=== PATIENT | female | born 1990 | race Caucasian/White ===

== ENCOUNTER 2020-03-03 17:40 | Emergency (ER) | payer SELFPAY ==
[2020-03-03 17:41] VITALS: BP 107/69; PULSE 86; RESP 16; TEMP 36.9; O2SAT 99
--- NOTE | 2020-03-03 18:01 | ED.SKABFB ---
HPI - Skin/Abscess/Foreign Bdy General Chief complaint: Skin/Abscess/Foreign Body Stated complaint: BOIL ON L LEG Time Seen by Provider: 03/03/20 18:01 Source: patient and RN notes reviewed History of Present Illness HPI narrative: Patient is a 29-year-old female that presents to the urgent care with complaints of an abscess on the leg x7 days. Patient states that she gets them often on the left leg and has had them 3 times in the past. Patient states that she has been putting Pred and warm compress to the area without much relief. Patient denies of any drainage from the area. Denies of any fever, nausea, vomiting. No other acute complaints. No acute distress noted. Patient read the plan of care. Related Data Allergies Allergy/AdvReac Type Severity Reaction Status Date / Time diazepam AdvReac Intermediate panic Verified 03/03/20 17:49 attacks meperidine AdvReac Intermediate panic Verified 03/03/20 17:49 attacks Review of Systems Review of Systems: Narrative: CONSTITUTIONAL: Denies fever, chills, or sweats. EYES: Denies visual changes, redness, or discharge. ENT: Denies rhinorrhea, congestion, sore throat, or otalgia. CARDIOVASCULAR: Denies chest pain, palpitations, or edema. RESPIRATORY: Denies cough or dyspnea. GASTROINTESTINAL: Denies abdominal pain, nausea, vomiting, or diarrhea. GENITOURINARY: Denies dysuria or hematuria. SKIN: Reports of an abscess to the inner thigh of the left leg MUSCULOSKELETAL: Denies back pain, joint pain, or myalgia. NEUROLOGIC: Denies headache, numbness, or weakness. All other systems reviewed are negative, except as documented in HPI. PMFSH Comments At the time of my signature, I reviewed and agree with the nursing past medical, surgical, social, and family history. There is no relevant family history pertinent to the patient complaint. Exam Narrative: Exam Narrative: GENERAL: This is a well-nourished, well-developed patient, in no apparent distress. HEAD: normocephalic, atraumatic. EYES: PERRL. Sclera clear/white. Vision is grossly intact. EARS: External ears normal NOSE: External nose normal with no obvious nasal discharge THROAT: Mucous membranes moist, posterior pharynx clear. NECK: Neck supple CARDIOVASCULAR: Regular rate and rhythm without murmurs, gallops, or rubs. RESPIRATORY: Clear to auscultation. Breath sounds equal bilaterally. No wheezes, rales, or rhonchi. SKIN: 5 cm area of erythema surrounding a nonfluctuant approximately 6 cm abscess to the upper inner left thigh NEURO: awake, alert, and oriented to person, place and time. There were no obvious focal neurologic abnormalities. EXTREMITIES: No clubbing, cyanosis, or edema. Course Vital Signs Vital signs: Vital Signs Temperature 98.4 F 03/03/20 17:41 Pulse Rate 86 03/03/20 17:41 Respiratory Rate 16 03/03/20 17:41 Blood Pressure 107/69 03/03/20 17:41 Pulse Oximetry 99 03/03/20 17:41 Temperature 98.4 F 03/03/20 17:41 Pulse Rate 86 03/03/20 17:41 Respiratory Rate 16 03/03/20 17:41 Blood Pressure 107/69 03/03/20 17:41 Pulse Oximetry 99 03/03/20 17:41 Reviewed MDM - Skin/Abscess/Foreign Bdy MDM Narrative Medical decision making narrative: Advised the patient not to try to pop or open the abscess. Complete oral antibiotic regimen as prescribed. Make sure to eat and drink with the medication. Increase water intake while on the medication. Use Bactroban if the area does open and drained. Clean the area twice a day or more if needed, with plain Dial soap and water. May continue to use warm compress. If the area drains, make sure to keep it covered, keep it cleaned, and use Bactroban as directed. Be aware of signs of worsening infection such as increased swelling, redness, streaking up the groin or down the leg, fever, nausea, vomiting. If you experience the above symptoms, follow-up in the emergency room. Wear nonocclusive clothing. Follow-up with PCP within 2 to 5 days or for wo
== END 2020-03-03 18:17 | disposition home or self-care (01) ==
PROVIDERS: Emergency Provider Nurse Practitioner Family
DX: L02.416 Cutaneous abscess of left lower limb (principal)
CPT/HCPCS: 99213; G0463

== ENCOUNTER 2021-10-11 07:32 | Emergency (ER) | payer OTHER, SELFPAY ==
[2021-10-11 07:39] VITALS: BP 133/82; PULSE 75; RESP 16; TEMP 36.6; O2SAT 100
--- NOTE | 2021-10-11 08:07 | ED.GENADULT ---
HPI - General Adult General Chief complaint: Headache Stated complaint: headache Time Seen by Provider: 10/11/21 07:54 Source: patient Mode of arrival: ambulatory Limitations: no limitations History of Present Illness HPI narrative: Patient presents with diffuse generalized pressure type headache associated with generalized tingling and numbness. Patient denies any stress. History of migraine and anxiety. No improvement on Tylenol or ibuprofen. The headache associated with nausea and vomiting, no fever, no chills, no abdominal pain, no chest pain, no skin rash. Headache is worse with activity, nothing make it better. Related Data Allergies Allergy/AdvReac Type Severity Reaction Status Date / Time diazepam AdvReac Intermediate panic Verified 10/11/21 07:43 attacks meperidine AdvReac Intermediate panic Verified 10/11/21 07:43 attacks Review of Systems Review of Systems: CONSTITUTIONAL: Denies fever, chills, or sweats. EYES: Denies visual changes, redness, or discharge. ENT: Denies rhinorrhea, congestion, sore throat, or otalgia. CARDIOVASCULAR: Denies chest pain, palpitations, or edema. RESPIRATORY: Denies cough or dyspnea. GASTROINTESTINAL: Denies abdominal pain, nausea, vomiting, or diarrhea. GENITOURINARY: Denies dysuria or hematuria. SKIN: Denies rash or itching. MUSCULOSKELETAL: Denies back pain, joint pain, or myalgia. NEUROLOGIC: Denies headache, numbness, or weakness. PSYCHIATRIC: Denies anxiety or depression. Exam Narrative: General appearance: Well-developed, well-nourished, restless Skin: Normal color Head: Normocephalic, nontraumatic Eyes: Clear conjunctiva ENT: Oropharynx normal, ears normal, nose normal Neck: Supple, nontender Chest and respiratory: Airway patent, no respiratory distress, no accessory muscle use Heart: Regular rate/rhythm Abdomen: Soft, nontender, no organomegaly, quiet bowel sounds Vascular: Normal peripheral pulses, normal capillary refill. Musculoskeletal: Normal range of motion, nontender back Neurologic: Alert and oriented ?3, [employer] is normal as tested, no gross motor deficit Course Course Emergency Course: Improving Vital Signs Vital signs: Vital Signs Temperature 36.6 C 10/11/21 07:39 Pulse Rate 75 10/11/21 07:39 Respiratory Rate 16 10/11/21 07:39 Blood Pressure 133/82 10/11/21 07:39 Pulse Oximetry 100 10/11/21 07:39 Temperature 36.6 C 10/11/21 07:39 Pulse Rate 75 10/11/21 07:39 Respiratory Rate 16 10/11/21 07:39 Blood Pressure 133/82 10/11/21 07:39 Pulse Oximetry 100 10/11/21 07:39 Medical Decision Making MDM Narrative Medical decision making narrative: Anxiety inducing headache/tension headache is my concern Differential Diagnosis Differential Diagnosis: Headache of unknown etiology, tension headache, anxiety-like symptoms Vital Signs Vital Signs: Vital Signs Temperature 36.6 C 10/11/21 07:39 Pulse Rate 75 10/11/21 07:39 Respiratory Rate 16 10/11/21 07:39 Blood Pressure 133/82 10/11/21 07:39 Pulse Oximetry 100 10/11/21 07:39 Temperature 36.6 C 10/11/21 07:39 Pulse Rate 75 10/11/21 07:39 Respiratory Rate 16 10/11/21 07:39 Blood Pressure 133/82 10/11/21 07:39 Pulse Oximetry 100 10/11/21 07:39 Critical Care Time Critical Care Time Critical Care Time: Yes Total Critical Care Time: 30 Discharge Plan Discharge Clinical Impression: Headache Patient Disposition: Home, Self-Care Condition: Stable Instructions: Antibiotic Form, Acute Headache (ED) Additional Instructions: Return if symptoms are worsening , call your family physician for appointment, take Tylenol as as needed for aches and pain, co
[2021-10-11] MEDS: SODIUM CHLORIDE 0.9% IV 1,000 ML 999 ML IV CONT (08:22)
[2021-10-11] MEDS: diphenhydrAMINE HCl INJ 50 MG/ML VIAL 25 MG IV PUSH (08:23)
[2021-10-11] MEDS: METOCLOPRAMIDE HCL INJ 10 MG/2 ML VIAL IV PUSH (08:23)
[2021-10-11] MEDS: KETOROLAC 30 MG/ML VIAL (*BKC) IV PUSH (08:23)
[2021-10-11] MEDS: LORazepam INJ (*CRX) 2 MG/ML VIAL 1 MG IV PUSH (08:23)
== END 2021-10-11 10:25 | disposition home or self-care (01) ==
PROVIDERS: Emergency Provider Emergency Medicine
DX: R51.9 Headache, unspecified (principal)
CPT/HCPCS: 96361; 96374; 96375; 99284; J1200; J1885; J2060; J2765; J7030

== ENCOUNTER 2022-03-05 14:25 | Outpatient (CLI) | payer OTHER, SELFPAY ==
--- NOTE | ~2022-03-05 | XR_ITS ---
EXAMINATION: XR hip RT min 2V DATE: 03/05/2022 14:42 INDICATION: Right hip pain. TECHNIQUE: 2 views of right hip were obtained. COMPARISON: None. FINDINGS: Bone alignment is normal. No fracture. There is a dysplastic bump at the anterolateral junc tion of right femoral head and neck, which may be seen with femoral acetabular impingement. An os mick tabuli is noted. Right hip joint space is normal. IMPRESSION: 1. No arthritis. Reviewed, dictated and finalized at location A. IMPRESSION: 1. No arthritis.
== END 2022-03-05 14:26 | disposition home or self-care (01) ==
PROVIDERS: PCP Physician Assistant; Visit Provider Physician Assistant
DX: M25.551 Pain in right hip (principal)
CPT/HCPCS: 73502

== ENCOUNTER 2022-03-12 14:24 | Outpatient (CLI) | payer OTHER, SELFPAY ==
--- NOTE | ~2022-03-12 | XR_ITS ---
EXAM: XR hip LT min 3V w AP pelvis HISTORY: CERVICALGIA;PAIN IN LEFT HIP COMPARISON: None available FINDINGS: Normal mineralization. No fracture or dislocation. No lytic or blastic lesion. Joint space s maintained. No erosion or periosteal change. Soft tissues within normal limits. IMPRESSION: Normal left hip radiograph findings. Reviewed, dictated and finalized at location K.
--- NOTE | ~2022-03-12 | XR_ITS ---
EXAM: XR cervical spine 4-5V HISTORY: CERVICALGIA;PAIN IN LEFT HIP, NO INJURY COMPARISON: None available FINDINGS: Craniocervical association and atlantoaxial joint are normal. No prevertebral soft tissue swelling. The vertebral body heights and are maintained. 2 mm anterolisthesis of C4 on C5 and C5 on 6 . Mild disc space narrowing at C5-6. Normal facets and posterior elements. IMPRESSION: Grade 1 anterolisthesis at C4 on C5 and C5 on 6. Mild degenerative disc disease at C5-6. Reviewed, dictated and finalized at location K.
== END 2022-03-12 14:25 | disposition home or self-care (01) ==
LOC: ANHIMG 14:29
PROVIDERS: PCP Physician Assistant; Visit Provider Physician Assistant
DX: M47.812 Spondylosis without myelopathy or radiculopathy, cervical region (principal); M25.552 Pain in left hip
CPT/HCPCS: 72050; 73502

== ENCOUNTER 2022-04-15 16:00 | Outpatient (RCR) | payer OTHER, SELFPAY ==
--- NOTE | 2022-04-05 13:35 | PTOPEVAL ---
PHYSICAL THERAPY INITIAL EVALUATION. Thank you for referring Christine Saha to [facility] The patient is scheduled to be seen for therapy? 1x/week for 6 weeks. Please review, sign, date and return this plan of care HE. I agree with and certify that the following plan of care is medically necessary. Referring Physician Date Attending Provider: Gill Miranda, PA Evaluation Information Diagnosis Bilateral hip pain Onset ~1 year Subjective Information Pt states she suffers from Query Text:As Reported By Patient/ chronic hip pain and also Family chronic headaches. Shes states she has pain in both hips L > R. She states the pain radiates down into her knees. Pt states she worst pain in laying on her side with pressure on her hip. She reports she is consulting with an orthopedic on 04/15/22. Pain Assessment Self Report Pain Assessment Bilateral Hip(s) Reported Pain Level 0 Pain Description Aching,Radiating,With Movement Pain Radiation Left Leg,Right Leg Lowest Pain Intensity 0 Greatest Pain Intensity 8 Lower Extremity Range of Motion General Lower Extremity Range of Motion WFL/Left,WFL/Right Hip Range of Motion Left Hip Flexion Range of Motion - Active 100 Hip Extension Range of Motion - Active 10 Hip Medial Rotation - Passive 10 Hip Lateral Rotation - Passive 75 Hip Range of Motion Comments R hip flexion 120 R hip ER 80 with hip at 90-90 R hip IE 30 with hip in 90-90 Lower Extremity Muscle Strength Testing Gross Lower Extremity Strength Pain reports with all resisted movements on the L LE. B LE grossly 5/5 except: L hip flexion 4/5 Muscle Length Testing Right Prone Hip Internal Rotator Length 45 Left Prone Hip Internal Rotator Length ( 45 Left Hamstring Length -45 Right Hamstring Length -10 Posture Posture Evaluation View Posterior Head/C-Spine Posture Excess Extension,C-Spine Flattened Thoracic Spine Posture Flattened Lumbar Spine Posture Increased Lordosis Pelvis Posture Neutral Weight Distribution Balanced Hip Posture (L) Neutral,(R) Neutral Knee Posture (L) Genu Valgus,(R) Genu Valgus Palpation Assessment Palpation anterior hip crease Hip Special Tests Hip Scou
--- NOTE | 2022-04-22 14:13 | PCPTNOTE ---
Patient called & cancelled scheduled appointment this date, she did not give a reason why.
--- NOTE | 2022-04-30 15:20 | PCPTNOTE ---
Patient did not show up for scheduled appointment this date. Called and left voicemail.
--- NOTE | 2022-05-06 16:24 | PCPTNOTE ---
Patient did not show up for scheduled appointment this date; called patient who answered the phone stating Friday's don't work for her due to medical doctors for her child stated she has her follow-up with ortho MD on 05/14/22; after discussion will place patient on hold till further information is given from MRI results and MD visit. PT aware and in agreement.
--- NOTE | 2022-05-20 12:45 | PCPTNOTE ---
Attending Provider: Gill MirandaMAXX Patient:Christine Saha Date of :1990 Patient called and states her doctor would like her to try hip injections, she would like to be discharged from therapy at this time to try the injections first. Patient?s initial visit was on 04/05/2022 and she had a total of 2 visits. Thank you for referring this patient to [facility]. Please review, sign, date and return this discharge summary HE. I have been updated about the patient's current status and I agree with discharge from the above service at this time. Referring Physician Date
== END 2022-05-21 10:16 | disposition home or self-care (01) ==
LOC: ANHPT 16:00
PROVIDERS: PCP Physician Assistant; Referring Provider Physician Assistant; Visit Provider Physician Assistant
DX: M43.10 Spondylolisthesis, site unspecified (principal)
CPT/HCPCS: 97110; 97112; 97161; 97530

== ENCOUNTER 2022-05-04 12:29 | Outpatient (CLI) | payer OTHER, SELFPAY ==
--- NOTE | ~2022-05-04 | MR_ITS ---
EXAMINATION: MR hip LT wo con DATE: 05/04/2022 13:38 INDICATION: Bilateral hip joint pain. TECHNIQUE: Magnetic resonance imaging (MRI) of the left hip was performed without intravenous contras t. COMPARISON: Left hip radiographs 03/12/2022 FINDINGS: Bones/cartilage: Bone alignment is normal. No fracture. There are dysplastic bumps on the femoral head/neck junctions anterolaterally. The hip joints demonstrate tiny osteophytes. Small [id number] images of left hip demonstrate partial thickness cartilage loss posteriorly. Labrum: Left acetabular labrum is normal. Fluid: There is no hip joint effusion. There is mild bilateral trochanteric bursitis. Soft tissues: There is mild right gluteus minimus and gluteus medius tendinopathy. There is mild left gluteus mediu s tendinopathy. The hamstring tendon origins are normal. The iliopsoas tendons are normal. The muscul ature is normal. IMPRESSION: 1. Mild left hip chondrosis. 2. Dysplastic bumps at the femoral head/neck junctions anterolaterally, which may be seen with femora l acetabular impingement. 3. Mild tendinopathy of right gluteus minimus and medius tendons and left gluteus medius tendon. 4. Mild bilateral trochanteric bursitis. Reviewed, dictated and finalized at location A. IMPRESSION: 1. Mild left hip chondrosis. 2. Dysplastic bumps at the femoral head/neck junctions anterolaterally, which m ay be seen with femoral acetabular impingement. 3. Mild tendinopathy of right gluteus minimus and medius tendons and left glute us medius tendon. 4. Mild bilateral trochanteric bursitis.
== END 2022-05-04 12:30 | disposition home or self-care (01) ==
PROVIDERS: PCP Physician Assistant; Visit Provider Physician Assistant Surgical
DX: M71.552 Other bursitis, not elsewhere classified, left hip (principal); M71.551 Other bursitis, not elsewhere classified, right hip
CPT/HCPCS: 73721

== ENCOUNTER 2022-05-24 10:54 | Outpatient (CLI) | payer OTHER, SELFPAY ==
--- NOTE | ~2022-05-24 | XR_ITS ---
EXAMINATION: XR lg joint inject/asp w image DATE: 05/24/2022 11:39 INDICATION: Other specified joint disorders. TECHNIQUE: A time-out was performed to verify the patient's name, date of , and procedure to b e performed. The procedure including the risks, benefits, and alternatives was discussed with the pat ient. Risks discussed included bleeding and infection. The patient understood the risks and agreed to proceed. The skin overlying the left hip joint was prepped and draped in usual sterile fashion. An esthetic was administered with 1% lidocaine subcutaneously. A 22 G needle was advanced under fluoros copic guidance into the joint. Subsequently, injectate consisting of 4 mL 1% lidocaine and 1 mL 80 m g/mL Depo-Medrol was instilled. The needle was removed and the entry site was cleaned and dressed. There were no immediate complications. Fluoroscopy exposure time was 0.0 minutes. The total number of images was 1. FINDINGS: Real-time fluoroscopy demonstrates the needle in the left hip joint. Patient's pain prior t o procedure:04/09. Patient's pain following the procedure: 02/07. IMPRESSION: 1. Fluoroscopy guided left hip joint injection of local anesthetic and steroid with decrease in the p atient's presenting pain. Reviewed, dictated and finalized at location A. IMPRESSION: 1. Fluoroscopy guided left hip joint injection of local anesthetic and steroid with decrease in the patient's presenting pain.
== END 2022-05-24 10:55 | disposition home or self-care (01) ==
LOC: ANHIMG 11:01
PROVIDERS: PCP Physician Assistant; Visit Provider Orthopaedic Surgery
DX: M25.852 Other specified joint disorders, left hip (principal)
CPT/HCPCS: 20610; 77002; J1040

== ENCOUNTER 2023-07-15 13:24 | Outpatient (CLI) | payer OTHER, SELFPAY ==
--- NOTE | 2023-07-15 | ECG_ITS ---
Measurements Intervals [place] Rate: 69 P: 53 OR: 160 QRS: 50 QRSD: 79 T: 38 QT: 396 QTc: 426 Interpretive Statements SINUS RHYTHM LOW QRS VOLTAGE IN PRECORDIAL LEADS [QRS DEFLECTION < 1.0 mV IN CHEST LEADS] NO PREVIOUS ECG AVAILABLE FOR COMPARISON Electronically Signed On 07-15-2023 14:42:21 CDT by Bayron Augustin M.D.
--- NOTE | ~2023-07-15 | XR_ITS ---
EXAMINATION:XR cervical spine min 6V DATE: 07/15/2023 13:48 INDICATION: Cervicalgia TECHNIQUE: AP, lateral in neutral, flexion, extension, bilateral oblique, and odontoid views of the c ervical spine are provided. COMPARISON: 03/12/2022 FINDINGS: There are 2 mm of anterolisthesis of C4 on C5. There is no hypermobility with flexion or ex tension. The odontoid process is intact. No fracture is identified. The vertebral body heights are no rmal. There is mild loss of intervertebral disc space height at C5-6. Prevertebral soft tissues are n ormal. IMPRESSION: 1. Mild cervical spondylosis without acute findings. Reviewed, dictated and finalized at location L.
== END 2023-07-15 13:25 | disposition home or self-care (01) ==
PROVIDERS: PCP Physician Assistant; Visit Provider Physician Assistant
DX: M54.2 Cervicalgia (principal); M43.02 Spondylolysis, cervical region
CPT/HCPCS: 72052; 93005

== ENCOUNTER 2023-09-10 17:49 | Inpatient (IN) | payer OTHER, SELFPAY ==
[2023-09-10] VITALS (44 sets, daily range): BP systolic 98–178; BP diastolic 44–144; PULSE 50–107; RESP 11–30; TEMP 36.6; O2SAT 91–100
--- NOTE | ~2023-09-10 | MR_ITS ---
EXAMINATION: MR brain/brain stem wo/w con DATE: 09/11/2023 13:45 INDICATION: Seizure. TECHNIQUE: Magnetic resonance imaging (MRI) of the brain and brainstem was performed without and with 16 mL MultiHance intravenous contrast. COMPARISON: Head CT 09/10/2023 FINDINGS: There is no intracranial hemorrhage, acute infarction, or abnormal intracranial mass lesion . The hippocampi are normal and symmetric. There is a focus of increased T2-weighted signal intensity in the right frontal lobe white matter, which is normal as an isolated finding. The ventricles are n ormal in size. There is mucosal thickening in sphenoid sinus. The mastoid air cells are normal. The o rbits are normal. IMPRESSION: 1. Normal brain. Reviewed, dictated and finalized at location A. IMPRESSION: 1. Normal brain.
--- NOTE | ~2023-09-10 | CT_ITS ---
EXAMINATION: CTA chest PE protocol DATE: 09/10/2023 20:55 INDICATION: Generalized chest pain TECHNIQUE: Computed tomography angiography (CTA) of the chest was performed with 100 mL Omnipaque-350 intravenous contrast timed to evaluate the pulmonary arteries. Coronal maximum intensity projection 3D-reconstructions were created by the technologist. The dose-length product (DLP) was 762.35 mGy-cm. Automated exposure control and iterative reconstruction technique were employed. COMPARISON: None. FINDINGS: The pulmonary arteries are well-opacified. No pulmonary embolism is identified. The lungs a re free of acute opacities. No pleural effusion or pneumothorax. No pathologically enlarged thoracic lymph nodes are identified. The heart size is normal. There is mild thoracic spondylosis. IMPRESSION: 1. No pulmonary embolism or acute cardiopulmonary abnormality. Reviewed, dictated and finalized at location F.
--- NOTE | ~2023-09-10 | XR_ITS ---
Portable chest x-ray Comparison: None Clinical History: Aspiration Findings: Lungs are clear, without focal consolidation or pleural effusion. Cardiomediastinal silho uette is stable. Bones and soft tissues are unremarkable. Impression: Normal chest. Reviewed, dictated and finalized at location M. Impression: Normal chest.
--- NOTE | ~2023-09-10 | CT_ITS ---
EXAMINATION: CT brain wo con INDICATION: Seizure COMPARISON: None TECHNIQUE: Standard unenhanced head CT. The dose-length product (DLP) was 605.33 mGy-cm. The mA was a djusted according to patient size. Iterative reconstruction technique was employed. FINDINGS: No intracranial hemorrhage, acute infarction, or abnormal mass lesion. The ventricles are n ormal. No abnormal mass effect or midline shift. The wise-white matter differentiation is normal. The basal cisterns are patent. The orbits are normal. The paranasal sinuses, mastoids and calvarium are normal. IMPRESSION: 1. No acute intracranial abnormality. Reviewed, dictated and finalized at location F.
--- NOTE | 2023-09-10 18:34 | ECG_ITS ---
Measurements Intervals [place] Rate: 87 P: 62 NC: 164 QRS: 48 QRSD: 86 T: 0 QT: 372 QTc: 450 Interpretive Statements SINUS RHYTHM NONSPECIFIC T-WAVE ABNORMALITY ABNORMAL ECG COMPARED TO ECG 07/15/2023 13:55:41 T-WAVE ABNORMALITY NOW PRESENT Electronically Signed On 09-11-2023 8:59:36 CDT by Suhail Michel M.D.
--- NOTE | 2023-09-10 18:48 | ED.SYNCOPE ---
HPI - Syncope General Chief Complaint: Syncope Stated Complaint: syncopal episode Time Seen by Provider: 09/10/23 18:31 History of Present Illness HPI narrative: Patient is a 33 year old female with history of migraines, anxiety here with multiple neurological symptoms. Patient states that she has been on phentermine for weight loss, prescribed by her PCP, to help her lose weight prior to having an orthopedic surgery on her hips. She notes that she maxed out on the dose of this and, given her history of migraines, her PCP started her on topamax about 1 month ago to treat migraines and help her with further weight loss. She notes that she has had progressive symptoms since this began which include confusion, fatigue and shortness of breath. The symptoms seem to have worsened over the last 2 weeks. She attempted to get in for an appointment with her PCP and there was a delay in getting her in so she came into the ED for evaluation. While waiting to be seen she noted a syncopal episode which began with shortness of breath and then she blacked out . She had a second worse episode on my initial evaluation. She denies history of seizure, no cardiac history. She does not believe she had bowel or bladder incontinence. She does note that since the second episode here in the ED she seems to have white cotton looking clouds throughout her vision and some slurred speech. She denies any falls. She denies any cough, congestion, fever, chills. Related Data Allergies Allergy/AdvReac Type Severity Reaction Status Date / Time diazepam AdvReac Intermediate panic Verified 09/10/23 17:49 attacks meperidine AdvReac Intermediate panic Verified 09/10/23 17:49 attacks Review of Systems Review of Systems: ROS unobtainable: Yes unobtainable due to medical condition Exam Narrative: GENERAL: Ill appearing HEAD: Normocephalic, atraumatic. EYES: PERRLA, gaze deviation to the right ENT: Nares clear. Mucous membranes moist. CHEST: Tachypneic HEART: Tachycardic ABDOMEN: Soft, nondistended. EXTREMITIES: Flexed upper extremities, rigid, no evidence of trauma to upper or lower extremities. SKIN: Warm, dry NEURO: seizure like activity, flexed arms, rhythmic rocking motion in bed Course Course Emergency Course: Chart review performed. Patient here for confusion and shortness of breath x1 month after starting a new medication. Syncope x1 today. Last ED visit was in 2020 for a headache. Triage vitals within normal limits. As I am going in to evaluate the patient I see that she is tachycardic to the 150s on the monitor. As I walk into the room she is possibly having seizure-like activity with thrusting back and forth of her chest and contracted upper extremities. This does seem to resolve spontaneously. We will give dose of Ativan and patient she may be seizures. CT head, CTA PE study both ordered. Will load with john. On reevaluation, patient alert, oriented, able to provide additional history. Non focal neurological exam. Lab work reviewed. CBC within normal limits, Electrolytes within normal limits aside from a potassium of 3.1, will replete. Lactic of 3.9. Ammonia normal. ETOH negative. Initial troponin negative. BNP normal, TSH normal, negative. Spoke with Dr. Park, agrees with john. Recommends EEG in the morning and an MRI brain to rule out additional cause. Advises to watch BP while she is here. CTA PE negative. CT head negative. Patient's family updated on results. Spoke with Dr. Rhoades, accepts patient for admission. Vital Signs Vital signs: Vital Signs Temperature 97.9 F 09/10/23 17:58 Pulse Rate 84 09/10/23 17:58 Respiratory Rate 18 09/10/23 17:58 Blood Pressure 117/80 09/10/23 17:58 Pulse Oximetry 100 09/10/23 17:58 Oxygen Delivery Room Air 09/10/23 17:58 Temperature 97.9 F 09/10/23 17:58 Pulse Rate 69 09/10/23 18:43 Respiratory Rate 18 09/10/23 17:58 Blood Pressure 1
[2023-09-10 18:52] LABS: Basophils Percent Auto 0.4 % (0.2-1.2); Eosinophils Percent Auto 0.9 % (0-4.4); Hematocrit 39.9 % (37.0-47.0); Hemoglobin 13.3 g/dL (12.0-15.0); Immature Granulocyte Absolute 0.02 K/mm3 (0.00-0.031); Immature Granulocyte Percent A 0.4 % (0-0.5); Lymphocytes Absolute Auto 1.53 K/mm3 (0.9-3.2); Lymphocytes Percent Auto 34.3 % (18.3-44.2); Mean Corpuscular HGB Conc 33.3 g/dl (32-36); Mean Corpuscular Hemoglobin 28.8 pg (26-34); Mean Corpuscular Volume 86.4 fl (80-100); Mean Platelet Volume 10.5 fl (7.4-10.4); Monocytes Absolute Auto 0.4 K/mm3 (0.1-0.6); Monocytes Percent Auto 8.3 % (2.6-8.5); Neutrophils Absolute Auto 2.5 K/mm3 (1.3-6.7); Neutrophils Percent Auto 55.7 % (45.5-73.1); Platelet Count Result 201 k/mm3 (150-375); Red Blood Count 4.62 M/mm3 (4.2-5.4); Red Cell Distribution Width 13.7 % (11.5-14.5); White Blood Count 4.5 K/mm3 (4.5-10.0)
[2023-09-10 19:03] LABS: Alanine Aminotransferase 21 U/L (6-35); Albumin Level 4.1 g/dL (3.5-5.1); Alkaline Phosphatase 56 U/L (38-126); Anion Gap 8 mmol/L (8-16); Aspartate Amino Transferase 26 U/L (14-36); Bilirubin,Total 0.7 mg/dL (0.2-1.3); Blood Urea Nitrogen 11 mg/dL (7-17); Calcium 8.8 mg/dL (8.4-10.2); Carbon Dioxide 24 mmol/L (22-30); Chloride 105 mmol/L (98-107); Estimated CRCL calculation 76 ml/min; Estimated Glomerular Filt Rate > 60; Glucose 96 mg/dL (65-110); Potassium 3.1 mmol/L (3.4-5.0); Sodium 137 mmol/L (137-145)
[2023-09-10] MEDS: LORazepam INJ (*CRX) 2 MG/ML VIAL (19:09)
[2023-09-10 19:16] LABS: Glucose Point of Care 102 mg/dl (65-105)
[2023-09-10] MEDS: POTASSIUM CHLORIDE INJ 40 MEQ in SODIUM CHLORIDE 0.9% IV 500 ML 130 MEQ IVPB (19:30)
--- NOTE | 2023-09-10 19:37 | PC.NURSE ---
Assumed care of pt. Report from VERONICA Sterling. Pt just had witnessed episode which could have been seizure like. Started dry heaving and extremities with tonic clonic movement. Pt alert afterward, but does not speak.
[2023-09-10 19:45] LABS: Creatine Kinase 78 U/L (30-135); Magnesium 2.1 mg/dL (1.6-2.3)
[2023-09-10 19:46] LABS: Ammonia < 9 umol/L (9-30); Ethanol < 10 mg/dL (<10)
[2023-09-10 19:47] LABS: Lactic Acid Reflex 3.9 mmol/L (0.7-2.0)
[2023-09-10 19:58] LABS: Troponin I < 0.012 ng/mL (0.000-0.034)
[2023-09-10 20:28] LABS: SPREG INTERNAL CONTROL Positive; Serum Qual hCG Negative
[2023-09-10 20:31] LABS: NT Pro B Type Natriuretic Pept 37 pg/mL (19.9-100)
[2023-09-10] MEDS: levETIRAcetam 1000MG/NACL100ML 1,000 MG/100 ML BAG 400 MG IVPB ×2 (20:32→20:58)
--- NOTE | 2023-09-10 20:40 | PC.NURSE ---
Pt's significant other at bedside. States that when he arrived, pt was talking on the phone. Pt at this time appears to be sleeping.
--- NOTE | 2023-09-10 21:13 | PC.NURSE ---
Pt came back from CT. time study technician reports that pt suddenly stopped verbally responding to them. Pt in room, will open eyes and follow commands, but is back to attempting to communicate via hand signals.
[2023-09-10 21:23] LABS: Appearance Urine Clear (Clear); Bilirubin Urine Negative (Negative); Blood Urine Negative (Negative); Color Urine Yellow (Yellow); Glucose Urine UA Negative (Negative); Ketones Urine 1+ mg/dL (Negative); Leukocyte Esterase Ur Negative LEU/UL (Negative); Nitrate Urine Negative (Negative); Protein Urine Negative (Negative); pH Urine 8.5 (5.0-9.0)
[2023-09-10 21:30] LABS: Specific Grav Ur 1.036 (1.001-1.035)
[2023-09-10 21:31] LABS: Add Urine Microscopic? NO
[2023-09-10 21:38] LABS: Amphetamine Screen Urine Negative (Negative); Barbiturate Screen Urine Negative (Negative); Benzodiazepines Screen Urine Negative (Negative); Cannabinoid Screen Urine Negative (Negative); Cocaine Screen Urine Negative (Negative); Methadone Screen Urine Negative (Negative); Opiate Screen Urine Negative (Negative); Phencyclidine Screen Urine Negative (Negative)
--- NOTE | 2023-09-10 22:14 | PM.IMHP ---
H&P: HPI History of Present Illness Date/Time: 09/10/23 22:14 Chief Complaint: syncope Narrative: This is a 33-year-old female with past medical history significant for generalized anxiety disorder, depression, obesity, patient recently started on weight loss medication presents to the emergency room with various complaints neurologically while waiting in the waiting room in the emergency room patient had a syncopal episode and while emergency room doctor was in the room examining patient had a seizure episode which was witnessed. Patient received a load of Keppra and has been admitted for further evaluation management and treatment at the time of my visit patient was post ictal she was not able to give any history most of the history was obtained upon emergency room doctor and her who is at bedside. Preliminary workup has been essentially none revielling. EXAMINATION: CT brain wo con ? INDICATION: Seizure ? COMPARISON: None TECHNIQUE: Standard unenhanced head CT. The dose-length product (DLP) was 605.33 mGy-cm. The mA was adjusted according to patient size. Iterative reconstruction technique was employed. ? FINDINGS: No intracranial hemorrhage, acute infarction, or abnormal mass lesion. The ventricles are normal. No abnormal mass effect or midline shift. The wise-white matter differentiation is normal. The basal cisterns are patent. The orbits are normal. The paranasal sinuses, mastoids and calvarium are normal. ? IMPRESSION: 1. No acute intracranial abnormality. EXAMINATION: CTA chest PE protocol DATE: 09/10/2023 20:55 INDICATION: Generalized chest pain TECHNIQUE: Computed tomography angiography (CTA) of the chest was performed with 100 mL Omnipaque-350 intravenous contrast timed to evaluate the pulmonary arteries. Coronal maximum intensity projection 3D-reconstructions were created by the technologist. The dose-length product (DLP) was 762.35 mGy-cm. Automated exposure control and iterative reconstruction technique were employed. COMPARISON: None. FINDINGS: The pulmonary arteries are well-opacified. No pulmonary embolism is identified. The lungs are free of acute opacities. No pleural effusion or pneumothorax. No pathologically enlarged thoracic lymph nodes are identified. The heart size is normal. There is mild thoracic spondylosis. IMPRESSION: 1. No pulmonary embolism or acute cardiopulmonary abnormality. Review of Systems Review of Systems: ROS unobtainable: Yes unobtainable due to mental status (Post ictal) Meds Home Medications and Allergies Home Medications Medication Instructions Recorded Confirmed Type mupirocin 2 % topical ointment 1 applic topical BID #15 grams 03/03/20 Rx sulfamethoxazole 800 1 tablet PO Q12H #20 tabs 03/03/20 Rx mg-trimethoprim 160 mg tablet (Bactrim DS) Allergies Allergy/AdvReac Type Severity Reaction Status Date / Time diazepam AdvReac Intermediate panic Verified 09/10/23 17:49 attacks meperidine AdvReac Intermediate panic Verified 09/10/23 17:49 attacks Vital Signs Vital Signs - 24 hr 09/10/23 17:58 09/10/23 18:43 09/10/23 18:43 Temperature 97.9 F Pulse Rate 84 69 Respiratory Rate 18 Blood Pressure 117/80 Pulse Oximetry 100 100 Oxygen Delivery Room Air Room Air Exam Narrative: Patient is in a stretcher Const: General: comfortable, no acute distress, well developed, overweight and other (Postictal) Nutritional Appearance: overweight Orientation/consciousness: Other orientation findings (post ictal) HENMT: Head: normal to inspection, normocephalic and atraumatic Ears: hearing grossly normal bilaterally Face/Nose/Sinus: normal facial exam Face and sinus: normal facial exam Eyes: General: appearance normal, both eyes and all related structures Pupils: Equal, round and reactive pupils present EOM: EOMs intact bilaterally Neck: Neck: full ROM, no lymphadenopathy and no JVD Thyroid: thyroid normal Lymphat
[2023-09-10 22:27] LABS: Reflex Lactic Acid Yes or No Add Lactic
[2023-09-10] MEDS: SODIUM CHLORIDE 0.9% IV 1,000 ML 999 ML IV CONT (22:30)
[2023-09-10 22:52] LABS: Lactic Acid 1.1 mmol/L (0.7-2.0)
--- NOTE | 2023-09-10 23:04 | PC.NURSE ---
Pt now speaking. States that she cannot urinate. Bladder scan shows only 52 mls. Discussed with pt need to wait longer to see if she can urinate.
[2023-09-10 23:05] LABS: Troponin I < 0.012 ng/mL (0.000-0.034)
--- NOTE | 2023-09-10 23:29 | PC.NURSE ---
Pt able to urinate per bedpan. c/o nausea.
[2023-09-11] VITALS (30 sets, daily range): BP systolic 97–121; BP diastolic 52–73; PULSE 50–77; RESP 12–23; TEMP 36.2–36.6; O2SAT 97–100
--- NOTE | 2023-09-11 01:17 | PC.NURSE ---
Pt sleeping quietly per cart. Resp even and nonlabored. Call light in reach.
--- NOTE | 2023-09-11 02:45 | PC.NURSE ---
Report to VERONICA Salgado in ICU.
--- NOTE | 2023-09-11 04:00 | ADMIMU ---
This patient, Christine Saha, was admitted to IMU status, and placed in Intensive Care Unit-4. Patient/family oriented to hospital policies and general routines including ID bracelet, bed and alarms, visiting hours, pain management, procedures, bathroom and other care routines, personal items, smoking policy, room service/diet, and visiting hours. Valuables list has been completed. Information on how to activate the Rapid Response Team has been discussed. Patient/Family are encouraged to report perceived risks to care and to ask questions if they do not understand what they are told or what they should do.
[2023-09-11] MEDS: levETIRAcetam 1000MG/NACL100ML 1,000 MG/100 ML BAG 400 MG IVPB (07:57)
[2023-09-11 08:09] LABS: Basophils Percent Auto 0.4 % (0.2-1.2); Eosinophils Absolute Auto 0.1 K/mm3 (0-0.3); Eosinophils Percent Auto 1.1 % (0-4.4); Hemoglobin 13.4 g/dL (12.0-15.0); Immature Granulocyte Absolute 0.01 K/mm3 (0.00-0.031); Immature Granulocyte Percent A 0.2 % (0-0.5); Mean Corpuscular HGB Conc 33.5 g/dl (32-36); Mean Corpuscular Hemoglobin 29.1 pg (26-34); Mean Corpuscular Volume 86.8 fl (80-100); Mean Platelet Volume 11.2 fl (7.4-10.4); Monocytes Absolute Auto 0.4 K/mm3 (0.1-0.6); Monocytes Percent Auto 9.2 % (2.6-8.5); Neutrophils Absolute Auto 2.7 K/mm3 (1.3-6.7); Neutrophils Percent Auto 57.1 % (45.5-73.1); Platelet Count Result 197 k/mm3 (150-375); Red Blood Count 4.61 M/mm3 (4.2-5.4); Red Cell Distribution Width 13.8 % (11.5-14.5); White Blood Count 4.7 K/mm3 (4.5-10.0)
[2023-09-11 08:20] LABS: Alanine Aminotransferase 19 U/L (6-35); Albumin Level 3.7 g/dL (3.5-5.1); Alkaline Phosphatase 51 U/L (38-126); Anion Gap 7 mmol/L (8-16); Aspartate Amino Transferase 21 U/L (14-36); Bilirubin,Total 0.9 mg/dL (0.2-1.3); Blood Urea Nitrogen 6 mg/dL (7-17); Calcium 8.7 mg/dL (8.4-10.2); Carbon Dioxide 20 mmol/L (22-30); Chloride 110 mmol/L (98-107); Estimated CRCL calculation 106 ml/min; Estimated Glomerular Filt Rate > 60; Glucose 95 mg/dL (65-110); Magnesium 2.2 mg/dL (1.6-2.3); Phosphorus 2.4 mg/dL (2.5-4.5); Potassium 4.1 mmol/L (3.4-5.0); Sodium 137 mmol/L (137-145)
--- NOTE | 2023-09-11 08:22 | PM.IMPN ---
Progress Note: A&P Assessment and Plan (1) Seizure: Code(s): R56.9 - Unspecified convulsions Status: Acute Assessment and Plan: Seizure Patient is confused, history is taken from patient's friends Patient has no history of seizure, patient is on medication Ozempic to reduce bloody weight CT head, CT head unremarkable, drug screen negative, alcohol below 10 MRI pending Patient was loaded with K[facility] Neurology consult in a.m. MRI of the brain in a.m. EEG in a.m. Neurochecks q.2 hours Increased kappa of 1.5 g q.12 hours IV, Ativan 2 mg IV p.r.n.for active seizure Consulted neurologist per title searcher Hypokalemia Repleted with potassium chloride Corrected on repeated BMP HYPOPHOSPHATEMIA Replace with potassium phosphate 15 mmol once Metabolic acidosis Likely secondary seizure Start fluid resuscitation Follow-up BMP Given active and new onset seizure, will consult watch train inspector for evaluation Monitor patient closely in the ICU/overflow from IMU (2) Medication adverse effect: Qualifiers: Encounter type: initial encounter Qualified Code(s): T50.905A - Adverse effect of unspecified drugs, medicaments and biological substances, initial encounter Code(s): T50.905A - Adverse effect of unspecified drugs, medicaments and biological substances, initial encounter Status: Acute Assessment and Plan: Holding phentermine Subjective Date/time seen: 09/11/23 08:22 Interval history: Patient had an episode of seizure in the morning. When I saw examined patient at bedside, patient was confused. Per nurse report, patient was noticed to have body twisting, eyes rolling back back Exam Narrative: GENERAL: Pleasant, in no acute distress. Well-nourished. - EYES: EOMI. Anicteric. - HENT: Moist mucous membranes. - LUNGS: Clear to auscultation bilaterally, no wheezing, rhonchi, or rales. - CARDIOVASCULAR: Regular rate and rhythm. No murmur. No JVD. - ABDOMEN: Soft, non-tender and non-distended. No palpable masses. - EXTREMITIES: No edema. Peripheral pulses 2+. Non-tender. - NEUROLOGIC: No focal neurological deficits. CN II-XII grossly intact. - PSYCHIATRIC: Confused and not oriented x 3. - SKIN: No rashes or lesions. Warm. - LYMPH: No cervical lymphadenopathy. Objective Data Vital Signs Vital Signs: Vital Signs - 24 hr 09/10/23 17:58 09/10/23 18:43 09/10/23 18:43 Temperature 97.9 F Pulse Rate 84 69 Respiratory Rate 18 Blood Pressure 117/80 Pulse Oximetry 100 100 Oxygen Delivery Room Air Room Air 09/10/23 18:39 09/10/23 18:40 09/10/23 18:45 Temperature Pulse Rate 84 74 86 Respiratory Rate 11 L 15 19 Blood Pressure 121/86 Pulse Oximetry 100 100 100 Oxygen Delivery 09/10/23 18:46 09/10/23 19:00 09/10/23 19:01 Temperature Pulse Rate 79 68 107 H Respiratory Rate 11 L 14 20 Blood Pressure 108/65 134/79 Pulse Oximetry 100 91 100 Oxygen Delivery 09/10/23 19:08 09/10/23 19:15 09/10/23 19:16 Temperature Pulse Rate 92 85 86 Respiratory Rate 18 24 H 24 H Blood Pressure 135/44 L 111/55 L Pulse Oximetry 100 100 Oxygen Delivery 09/10/23 19:30 09/10/23 19:31 09/10/23 19:45 Temperature Pulse Rate 85 84 95 Respiratory Rate 16 18 Blood Pressure 120/69 Pulse Oximetry 100 100 100 Oxygen Delivery 09/10/23 19:46 09/10/23 20:00 09/10/23 20:01 Temperature Pulse Rate 97 86 95 Respiratory Rate 17 20 16 Blood Pressure 120/85 132/102 H Pulse Oximetry 100 100 100 Oxygen Delivery 09/10/23 20:15 09/10/23 20:16 09/10/23 20:30 Temperature Pulse Rate 85 81 76 Respiratory Rate 21 H 16 Blood Pressure 109/58 L Pulse Oximetry 100 100 100 Oxygen Delivery 09/10/23 20:31 09/10/23 20:56 09/10/23 20:59 Temperature Pulse Rate 68 78 84 Respiratory Rate 14 Blood Pressure 123/70 104/93 H Pulse Oximetry 99 98 100 Oxygen Delivery 09/10/23 21:00 09/10/23 21:01 09/10/23 21:15 T
[2023-09-11] MEDS: ONDANSETRON INJ 4 MG/2 ML VIAL IV PUSH (08:55)
[2023-09-11] MEDS: levETIRAcetam 500MG/NACL 100ML 500 MG/100 ML BAG 400 MG IVPB (08:58)
[2023-09-11] MEDS: POTASSIUM PHOS,M-BASIC-D-BASIC 15 MMOL in SODIUM CHLORIDE 0.9% IV 250 ML 63.75 MMOL IVPB (09:02)
--- NOTE | 2023-09-11 11:33 | WPDCNINT ---
Assessment and Plan Assessment and plan (1) Seizure: Code(s): R56.9 - Unspecified convulsions Status: Acute Assessment and Plan: Patient had questionable seizure-like activity in the ER then in the ICU. No history of epilepsy Currently hemodynamically stable and alert oriented x3. Continue p.r.n. Ativan and seizure precaution Patient has been started on empiric Keppra EEG is being done Patient is being seen by Neurology MRI is pending No further recommendations from Critical Care standpoint. Patient does not need to be transferred to ICU at this time and can be managed on step-down unit. Will sign off. Please call if patient's status changes and needs re-evaluation (2) Shortness of breath: Code(s): R06.02 - Shortness of breath Status: Acute Assessment and Plan: No respiratory distress. No abnormality on the lung exam. CTA negative. Satting 100% room air Shortness of breath likely secondary to anxiety (3) Medication adverse effect: Qualifiers: Encounter type: initial encounter Qualified Code(s): T50.905A - Adverse effect of unspecified drugs, medicaments and biological substances, initial encounter Code(s): T50.905A - Adverse effect of unspecified drugs, medicaments and biological substances, initial encounter Status: Acute Assessment and Plan: Patient anxiety may be secondary to phentermine which can cause anxiety irritability and even psychosis although patient is on low-dose Currently on hold Wafer Fab Operator Consult Note Consult date: 09/11/23 Reason for consult: Seizures HPI: Christine Saha is a 33 year old female with past medical history of anxiety and migraine headaches was admitted to the IMCU unit with seizures. Patient has been taking phentermine for last 4 months and topiramate for 2-4 weeks for weight loss as she needed orthopedic surgery on her hips. She states she has been short of breath for last 2 weeks since starting Topamax and presented to ER. The ER she was noticed to be having seizure-like activity where she was thrusting back and forth chest on the bed with contracted upper extremities as per review of the ED note. She was given benzodiazepine and started on Keppra Head CT in the ER was negative and chest CTA showed no acute cardiopulmonary process. Lab work was essentially unremarkable including a lactic acid level TSH and urine test. Her UA was unremarkable and toxicology screen was negative. I was asked to evaluate patient for transfer to ICU. When I went to see the patient she was awake sitting in the bed. She told me that she cannot talk since she had a seizure although she was able to give me history by typing on her phone although answers all the questions. Patient took her pill bottles out of her bag give it to me and and was alert oriented x3. She states that she came in because of shortness of breath which started when she started taking her Topamax. Despite these symptoms she continue take Topamax because she was worried of discontinuing medication and having seizures. She did not see her prescribing physician for this either. Patient's was at bedside and told me that she was earlier speaking approximately 20 minutes prior to my visit. Patient does admit to having history of anxiety but denies any history of depression. He denies any suicidal homicidal ideation. At this time she denies any complaints apart from not being able to speak. She does not remember what happened earlier. All other systems were reviewed and were negative Review of Systems Review of Systems: All systems reviewed & are unremarkable except as noted in HPI and below (HPI) [facility] Past Medical History Medical History (Updated 09/11/23 @ 11:41 by Vahe Zamudio MD) Anxiety Migraine Social History Social History (System 09/25/22 @ 09:38 by Rosemarie Valdivia) Smoking status: Never smoker Alcohol intake: never Substance use: never
--- NOTE | 2023-09-11 12:18 | WPDNEURCNPN ---
Assessment and Plan Assessment and plan (1) Seizure-like activity: Code(s): R56.9 - Unspecified convulsions Status: Acute (2) Altered mental status: Code(s): R41.82 - Altered mental status, unspecified Status: Acute (3) Medication adverse effect: Qualifiers: Encounter type: initial encounter Qualified Code(s): T50.905A - Adverse effect of unspecified drugs, medicaments and biological substances, initial encounter Code(s): T50.905A - Adverse effect of unspecified drugs, medicaments and biological substances, initial encounter Status: Acute (4) Shortness of breath: Code(s): R06.02 - Shortness of breath Status: Acute Plan Patient with a history of anxiety presenting with syncope and concerns for seizure like activity in the setting of new medications (phentermine and Topamax). Routine EEG was normal. Based on description of these events, there is concern that they may not be epileptic. Patient reports having many episodes per day, but it seems that most of these are unwitnessed. - We are waiting on MRI brain - Discontinue maintenance Keppra - Would be helpful to have bedside nurses account of any future episodes she has during admission - Since she did have a syncopal episode with LOC, she should not be driving for at least six months - Will continue to follow Consult date: 09/11/23 Reason for consult: Seizure like activity HPI: Christine Saha is a 33 year old female with a history of migraines, anxiety/panic attacks who presented due to confusion, fatigue, and shortness of breath. Patient reports that she was prescribed phentermine by her PCP which she had taken for about a month. However, she started to get migraines so she was started on Topamax a few weeks ago. Since then she has noted progressive confusion, which worsened over the past two weeks. She presented to [facility], where while waiting she reportedly had a syncopal episode (started with shortness of breath and then she blacked out . While in the ED, she had an episode witnessed by the ED physician described as thursting back and forth of her chest with contraction of the upper extremities, with tachycardia up to 150s. She received Keppra in the ED. After admission she had another episode in which she arched her back, clutched her throat and said that she could not breath. This was concerning for possible seizures so she was transferred to the ICU. After the episode patient reported that she could not talk, but she was able to communicate by typing on her phone and showing to the nurses/providers. However during my evaluation she was speaking appropriately. CT head has been done which is unrevealing. Routine EEG was normal as well. MRI brain is pending. Review of Systems Constitutional: Constitutional: Denies chills, Denies fever(s) and Denies weight loss Eyes: Eyes: Denies diplopia and Denies loss of vision ENT: Denies dizziness, Denies hearing loss and Denies tinnitus Cardiovascular: Cardiovascular: Reports chest pain, Reports syncope and Reports dyspnea Respiratory: Respiratory: Denies cough, Reports dyspnea and Denies wheezing Gastrointestinal: Gastrointestinal: Reports abdominal pain, Denies change in bowel habits and Denies vomiting Genitourinary: Genitourinary: Denies urinary incontinence Musculoskeletal: Musculoskeletal: Reports arthralgias and Denies joint swelling Integumentary/Breasts: Skin/Breast: Denies new lesions and Denies rash Neurologic: Reports as per HPI, Denies dizziness, Reports syncope and Denies loss of vision Psychiatric: Psychiatric: Reports anxiety, Reports confusion and Denies depression Comments: history of panic attacks Endocrine: Endocrine: Denies cold intolerance and Denies heat intolerance Hematologic/Lymphatic: Hematologic/Lymphatic: Denies easy bleeding and Denies easy bruising Allergic/Immunologic: Allergic/Immunologic: Denies no additional allergic/immunol
--- NOTE | 2023-09-11 12:30 | WPDNEUROLOGY ---
Neurology EEG Report General Information Date of Study: 09/11/23 TEST Routine EEG DIAGNOSIS Seizure-like activity CONDITION OF RECORDING Awake, drowsy, asleep CLINICAL HISTORY Patient presented due to altered mental status, shortness of breath, syncope, and concern for seizure-like activity. Was started on phentermine and Topamax in the past month. EEG DESCRIPTION During the awake state with eyes closed the background consists of 10 Hz posterior dominant rhythm which attenuates appropriately with eye opening. The recording is continuous. There is a well developed anterior-posterior gradient. No significant asymmetries of background activities are noted. With drowsiness there is waxing and waning of the dominant rhythm with eventual replacement by a mixture of beta, alpha, and theta activity. As the patient enters stage II sleep, symmetrical spindles are present. Arousal is unremarkable. There are no epileptiform discharges or seizures during this recording. Hyperventilation and photic stimulation were not performed. IMPRESSION This is a normal routine EEG recorded in awake and asleep states. There are no electrographic seizures identified, nor are there any epileptiform discharges. Please note that a normal EEG cannot exclude a seizure disorder. Clinical correlation is recommended.
--- NOTE | 2023-09-11 13:18 | PC.NURSE ---
1315-pt. off the floor via stretcher to MRI
--- NOTE | 2023-09-11 13:51 | PC.NURSE ---
1351-Pt. returned to ICU 4 via wheelchair from MRI
[2023-09-11] MEDS: VENLAFAXINE HCL XR 37.5 MG CAP PO (14:29)
[2023-09-11] MEDS: ACETAMINOPHEN 325 MG TABLET 650 MG PO (14:29)
--- NOTE | 2023-09-11 17:50 | PC.NURSE ---
This patient, Christine Saha, was received from ICU 4 on 09/11/23 at 1750. Patient/family oriented to unit policies and routines. Report received from Kamini MARTIN.
--- NOTE | 2023-09-11 17:53 | PC.NURSE ---
This patient, Christine Saha, was transferred to [[id number]] on 09/11/23 at 1749. Personal belongings sent with patient. Report given to [Stacy MARTIN]. Appropriate documentation sent with patient.
[2023-09-11] MEDS: IBUPROFEN 600 MG TABLET PO (20:53)
[2023-09-12] VITALS: BP 101/65; PULSE 71; RESP 12; TEMP 35.8; O2SAT 98
[2023-09-12 04:00] VITALS: BP 94/56; PULSE 68; RESP 16; TEMP 35.8; O2SAT 95
[2023-09-12] MEDS: VENLAFAXINE HCL XR 37.5 MG CAP PO (08:33)
--- NOTE | 2023-09-12 08:46 | PM.IMPN ---
Progress Note: A&P Assessment and Plan (1) Seizure: Code(s): R56.9 - Unspecified convulsions Status: Acute Assessment and Plan: Seizure Patient is confused, history is taken from patient's friends Patient has no history of seizure, patient is on medication Ozempic to reduce bloody weight CT head, CT head unremarkable, drug screen negative, alcohol below 10 MRI pending Patient was loaded with [employer] Neurology consult is appreciated MRI of the brain unremarkable EEG unremarkable Neurochecks q.2 hours Discontinue kappa per neurologist request on ativan 2 mg IV p.r.n.for active seizure Per neurologist,?routine EEG was normal. Based on description of these events, there is concern that they may not be epileptic. Whatever the nature of the episodes is, it seems to be provoked by the medications she was on. she should not resume the phentermine and Topamax on discharge Hypokalemia Repleted with potassium chloride Corrected on repeated BMP Corrected HYPOPHOSPHATEMIA Replace with potassium phosphate 15 mmol once Phosphorus 3.5, corrected Metabolic acidosis Likely secondary seizure Start fluid resuscitation Follow-up BMP Corrected, bicarbonate 22 (2) Medication adverse effect: Qualifiers: Encounter type: initial encounter Qualified Code(s): T50.905A - Adverse effect of unspecified drugs, medicaments and biological substances, initial encounter Code(s): T50.905A - Adverse effect of unspecified drugs, medicaments and biological substances, initial encounter Status: Acute Assessment and Plan: Holding phentermine Subjective Date/time seen: 09/12/23 08:46 Interval history: Patient had an episode of seizure in the morning. When I saw examined patient at bedside, patient has no complaints, denies headache, palpitation, chest pain, shortness of breath, with pain, shortness and diarrhea. Patient afebrile, blood pressure stable, no new issue events overnight Exam Narrative: General: Pt is alert awake and in NAD Lungs/Chest: Trachea central Clear BS B/L, No crackles or wheezing. Cardiac: RRR. Normal S1 S2. No murmurs Circulation: Pedal pulses are intact and symmetrical. Abdomen: Normal bowel sounds.. Soft. NT. ND. Extremities: No clubbing, cyanosis or edema. Warm : Ernst in place Neurologic: Patient is alert oriented x3, cranials 2 through 12 intact, sensation to touch intact, muscle strength normal and symmetrical, no FND Skin: No Rash Objective Data Vital Signs Vital Signs: Vital Signs - 24 hr 09/11/23 10:00 09/11/23 10:00 09/11/23 12:00 Temperature 97.7 F Pulse Rate 60 60 56 L Respiratory Rate 19 17 Blood Pressure 108/59 L 111/60 Pulse Oximetry 99 100 Oxygen Delivery 09/11/23 12:00 09/11/23 12:00 09/11/23 14:00 Temperature Pulse Rate 53 L 60 Respiratory Rate Blood Pressure Pulse Oximetry Oxygen Delivery Room Air 09/11/23 16:00 09/11/23 16:00 09/11/23 20:00 Temperature 97.2 F L Pulse Rate 58 L 71 Respiratory Rate 18 12 Blood Pressure 97/55 L 108/66 Pulse Oximetry 98 100 Oxygen Delivery Room Air 09/11/23 20:00 09/12/23 00:00 09/12/23 04:00 Temperature 96.5 F L 96.5 F L Pulse Rate 71 68 Respiratory Rate 12 16 Blood Pressure 101/65 94/56 L Pulse Oximetry 98 95 Oxygen Delivery Room Air Intake/Output Intake/Output: Intake & Output 09/09/23 09/10/23 09/11/23 09/12/23 23:59 23:59 23:59 23:59 Intake Total 1200 975 365 Output Total 900 Balance 1200 75 365 Meds/Results Medications: Active Medications Generic Name Dose Route Start Last Admin Trade Name Freq PRN Reason Stop Dose Admin Acetaminophen 650 mg 09/11/23 14:07 09/11/23 14:29 Acetaminophen 325 Mg Tablet PO 650 mg Q6H PRN Administration Mild Pain (1-3) or Fever Levetiracetam 1,500 mg/ 115 mls @ 460 mls/hr 09/11/23 21:00 09/12/23 08:33 Dextrose IVPB 460 mls/hr Q12HR ANDREAS Administr
[2023-09-12 09:19] LABS: Basophils Percent Auto 0.3 % (0.2-1.2); Eosinophils Absolute Auto 0.1 K/mm3 (0-0.3); Eosinophils Percent Auto 2.4 % (0-4.4); Hematocrit 40.9 % (37.0-47.0); Hemoglobin 13.3 g/dL (12.0-15.0); Immature Granulocyte Absolute 0.01 K/mm3 (0.00-0.031); Immature Granulocyte Percent A 0.3 % (0-0.5); Lymphocytes Absolute Auto 1.33 K/mm3 (0.9-3.2); Lymphocytes Percent Auto 35.5 % (18.3-44.2); Mean Corpuscular HGB Conc 32.5 g/dl (32-36); Mean Corpuscular Hemoglobin 28.4 pg (26-34); Mean Corpuscular Volume 87.4 fl (80-100); Mean Platelet Volume 10.5 fl (7.4-10.4); Monocytes Absolute Auto 0.3 K/mm3 (0.1-0.6); Monocytes Percent Auto 8.5 % (2.6-8.5); Platelet Count Result 200 k/mm3 (150-375); Red Blood Count 4.68 M/mm3 (4.2-5.4); Red Cell Distribution Width 13.9 % (11.5-14.5); White Blood Count 3.8 K/mm3 (4.5-10.0)
[2023-09-12 09:28] LABS: Phosphorus 3.5 mg/dL (2.5-4.5)
[2023-09-12 09:38] LABS: Anion Gap 5 mmol/L (8-16); Blood Urea Nitrogen 8 mg/dL (7-17); Calcium 8.2 mg/dL (8.4-10.2); Carbon Dioxide 22 mmol/L (22-30); Chloride 108 mmol/L (98-107); Estimated CRCL calculation 80 ml/min; Estimated Glomerular Filt Rate > 60; Glucose 104 mg/dL (65-110); Phosphorus 3.4 mg/dL (2.5-4.5); Potassium 3.8 mmol/L (3.4-5.0); Sodium 135 mmol/L (137-145)
--- NOTE | 2023-09-12 11:26 | WPDNEUROPN ---
Progress Note: A&P Assessment and Plan (1) Altered mental status: Code(s): R41.82 - Altered mental status, unspecified Status: Acute (2) Seizure-like activity: Code(s): R56.9 - Unspecified convulsions Status: Acute (3) Medication adverse effect: Qualifiers: Encounter type: initial encounter Qualified Code(s): T50.905A - Adverse effect of unspecified drugs, medicaments and biological substances, initial encounter Code(s): T50.905A - Adverse effect of unspecified drugs, medicaments and biological substances, initial encounter Status: Acute Plan Patient with a history of anxiety presenting with syncope and concerns for seizure like activity in the setting of new medications (phentermine and Topamax). Routine EEG was normal. Based on description of these events, there is concern that they may not be epileptic. Whatever the nature of the episodes is, it seems to be provoked by the medications she was on. We discussed that she should not resume the phentermine and Topamax on discharge. Since she had an episode of LOC, we discussed that she should not be driving for 6 months. - Ok to discharge - Discontinue maintenance Keppra - Since she did have a syncopal episode with LOC, she should not be driving/operating heavy machinery for at least six months - Will have her follow-up in clinic in about 3-4 months Subjective Date/time seen: 09/12/23 11:26 Interval history: Christine Saha is a 33 year old female with a history of migraines, anxiety/panic attacks who presented due to confusion, fatigue, and shortness of breath. Patient reports that she was prescribed phentermine by her PCP which she had taken for about a month. However, she started to get migraines so she was started on Topamax a few weeks ago. Since then she has noted progressive confusion, which worsened over the past two weeks. She presented to [facility], where while waiting she reportedly had a syncopal episode (started with shortness of breath and then she blacked out . While in the ED, she had an episode witnessed by the ED physician described as thursting back and forth of her chest with contraction of the upper extremities, with tachycardia up to 150s. She received Keppra in the ED. After admission she had another episode in which she arched her back, clutched her throat and said that she could not breath. This was concerning for possible seizures so she was transferred to the ICU. After the episode patient reported that she could not talk, but she was able to communicate by typing on her phone and showing to the nurses/providers. However during my evaluation she was speaking appropriately. CT head has been done which is unrevealing. Routine EEG was normal as well. MRI brain is normal. Patient has not had any spells since yesterday. She reports no new concerns. Review of Systems Constitutional: Constitutional: Denies chills, Denies fever(s) and Denies weight loss Eyes: Eyes: Denies diplopia and Denies loss of vision ENT: Denies dizziness, Denies hearing loss and Denies tinnitus Cardiovascular: Cardiovascular: Denies chest pain, Denies syncope and Denies dyspnea Respiratory: Respiratory: Denies cough, Reports dyspnea and Denies wheezing Gastrointestinal: Gastrointestinal: Denies abdominal pain, Denies change in bowel habits and Denies vomiting Genitourinary: Genitourinary: Denies urinary incontinence Musculoskeletal: Musculoskeletal: Reports arthralgias and Denies joint swelling Integumentary/Breasts: Skin/Breast: Denies new lesions and Denies rash Neurologic: Reports as per HPI, Denies dizziness, Reports syncope and Denies loss of vision Psychiatric: Psychiatric: Reports anxiety, Denies confusion and Denies depression Comments: history of panic attacks Endocrine: Endocrine: Denies cold intolerance and Denies heat intolerance Hematologic/Lymphatic: Hematologic/Lymphatic: Denies easy bleeding and Denies ea
--- NOTE | 2023-09-12 11:52 | PM.DS ---
DS: Admitting Diagnosis Discharge Date Seizure Admitting Diagnosis Seizure Hypokalemia Hypophosphatemia, metabolic acidosis DS: Discharge Diagnosis Discharge Diagnosis (1) Seizure: Code(s): R56.9 - Unspecified convulsions Status: Acute (2) Medication adverse effect: Qualifiers: Encounter type: initial encounter Qualified Code(s): T50.905A - Adverse effect of unspecified drugs, medicaments and biological substances, initial encounter Code(s): T50.905A - Adverse effect of unspecified drugs, medicaments and biological substances, initial encounter Status: Acute Assessment and Plan: Holding phentermine DS: Summary Hospital Course Hospital Course: Patient PE, this is a 33-year-old female with past medical history significant for generalized anxiety disorder, depression, obesity, patient recently started on weight loss medication presents to the emergency room with various complaints neurologically while waiting in the waiting room in the emergency room patient had a syncopal episode and while emergency room doctor was in the room examining patient had a seizure episode which was witnessed.? Patient received a load of Keppra and has been admitted for further evaluation management and treatment at the time of my visit patient was post ictal she was not able to give any history most of the history was obtained upon emergency room doctor and her who is at bedside.? The following medical issues have been addressed during hospitalization Seizure Patient is confused, history is taken from patient's friends Patient has no history of seizure, patient is on medication Ozempic to reduce bloody weight CT head, CT head unremarkable, drug screen negative, alcohol below 10 Patient was loaded with Keppra Neurology consult is appreciated MRI of the brain unremarkable EEG unremarkable Neurochecks q.2 hours Discontinue kappa per neurologist request on ativan 2 mg IV p.r.n.for active seizure Per neurologist,?routine EEG was normal. Based on description of these events, there is concern that they may not be epileptic. Whatever the nature of the episodes is, it seems to be provoked by the medications she was on. she should not resume the phentermine and Topamax on discharge Hypokalemia Repleted with potassium chloride Corrected on repeated BMP Corrected HYPOPHOSPHATEMIA Replace with potassium phosphate 15 mmol once Phosphorus 3.5, corrected Metabolic acidosis Likely secondary seizure Start fluid resuscitation Follow-up BMP Corrected, bicarbonate 22 Time Spent with Patient Time attestation: Total time spent providing and/or coordinating discharge services: Exam Narrative: General: Pt is alert awake and in NAD Lungs/Chest: Trachea central Clear BS B/L, No crackles or wheezing. Cardiac: RRR. Normal S1 S2. No murmurs Circulation: Pedal pulses are intact and symmetrical. Abdomen: Normal bowel sounds.. Soft. NT. ND. Extremities: No clubbing, cyanosis or edema. Warm : Ernst in place Neurologic: Patient is alert oriented x3, cranials 2 through 12 intact, sensation to touch intact, muscle strength normal and symmetrical, no FND Skin: No Rash DS: Data Data Completed and Pending Labs on day of discharge: Labs from last 24 hours 09/12/23 09/12/23 09:08 09:07 WBC 3.8 L RBC 4.68 Hgb 13.3 Hct 40.9 MCV 87.4 MCH 28.4 MCHC 32.5 RDW 13.9 Plt Count 200 MPV 10.5 H Immature Gran % (Auto) 0.3 Neut % (Auto) 53.0 Lymph % (Auto) 35.5 [place] % (Auto) 8.5 Eos % (Auto) 2.4 Baso % (Auto) 0.3 Lymph # (Auto) 1.33 [place] # (Auto) 0.3 Eos # (Auto) 0.1 Baso # (Auto) 0.0 Abs Immat Gran (auto) 0.01 Absolute Neuts (auto) 2.0 Absolute Nucleated RBC 0.0 Nucleated RBC % 0.0 Sodium 135 L Potassium 3.8 Chloride 108 H Carbon Dioxide 22 Anion Gap 5 L BUN 8 Creatinine 0.80 Estim Creat Clear Calc 80 Estimated GFR
== END 2023-09-12 12:21 | disposition home or self-care (01) | DRG 53 ==
LOC: ANHED 22:25 → ANHICU 09-11 05:14 → ANH3MEDSUR 09-12 11:52 → ANHICU 09-15 09:35 → ANHIMU 09-15 09:35
PROVIDERS: Admitting Provider Internal Medicine; Emergency Provider Student in an Organized Health Care Education/Training Program; PCP Physician Assistant; Visit Provider Hospitalist
DX: R56.9 Unspecified convulsions (principal); E87.20 Acidosis, unspecified; T50.5X5A Adverse effect of appetite depressants, initial encounter; E87.5 Hyperkalemia; E66.9 Obesity, unspecified; F41.1 Generalized anxiety disorder; F32.A Depression, unspecified; G43.909 Migraine, unspecified, not intractable, without status migrainosus; Z28.21 Immunization not carried out because of patient refusal
CPT/HCPCS: 36415; 70450; 70553; 71045; 71275; 80048; 80053; 80307; 81003; 82140; 82550; 82948; 83605; 83735; 83880; 84100; 84443; 84484; 84703; 85025; 93005; 95816; 96365; 96366; 96368; 96375; 99285; A9270; A9577; J1953; J2060; J2405; J3480; J7030; J7040; J7050; Q9967

== ENCOUNTER 2024-01-01 08:46 | Outpatient (CLI) | payer OTHER, SELFPAY ==
--- NOTE | ~2024-01-01 | XR_ITS ---
XR chest 2V DATE: 01/01/2024 09:01 INDICATION: Persistent cough TECHNIQUE: PA and lateral views COMPARISON: 09/11/2023 portable AP chest FINDINGS: Normal heart size. No hilar or mediastinal enlargement. No pulmonary infiltrate or consolid ation, pleural effusion or pulmonary vascular congestion or pneumothorax. IMPRESSION: Negative Reviewed, dictated and finalized at location L. PROGRAMMER IMPRESSION: Negative
== END 2024-01-01 08:47 | disposition home or self-care (01) ==
LOC: ANHIMG 08:49
PROVIDERS: PCP Physician Assistant; Visit Provider Physician Assistant
DX: R05.3 Chronic cough (principal)
CPT/HCPCS: 71046

== ENCOUNTER 2024-03-20 14:17 | Emergency (ER) | payer OTHER, SELFPAY ==
[2024-03-20] VITALS (15 sets, daily range): BP systolic 107–129; BP diastolic 56–80; PULSE 60–86; RESP 12–20; TEMP 36; O2SAT 98–100
--- NOTE | ~2024-03-20 | CT_ITS ---
EXAMINATION: CT abdomen pelvis w con DATE: 03/20/2024 15:33 INDICATION: Periumbilical abdominal pain TECHNIQUE: Computed tomography (CT) of the abdomen and pelvis was performed with 100 mL Omnipaque-350 intravenous contrast. Automated exposure control and iterative reconstruction technique were employe d. The dose-length product was 1148.03 mGy-cm. COMPARISON: None. FINDINGS: Lower thorax: Unremarkable Liver: Normal. Biliary/Gallbladder: Gallbladder is normal. No bile duct dilation. Pancreas: No mass or duct dilation. Spleen: Normal. Adrenals:No mass. Kidneys: No suspicious mass, obstructing stone, or hydronephrosis. Simple left lower pole cyst. Multi ple additional left subcentimeter hypodensities too small to characterize but also likely represent c ysts. GI tract: Mild distal esophageal and gastric wall edema. No small or large bowel dilation. Normal miguel angel endix. Mesentery/Peritoneum: No ascites, mass, or free air. Retroperitoneum: No mass. Pelvis: Pelvic organs are within normal limits. Soft Tissues: Moderate, uncomplicated, fat-containing umbilical hernia. Bones: No acute osseous finding. IMPRESSION: Mild esophagitis/gastritis. Otherwise, no acute abdominopelvic process detected. Reviewed, dictated and finalized at location K.
[2024-03-20] MEDS: SODIUM CHLORIDE 0.9% IV 2,000 ML 999 ML IV CONT (15:02)
[2024-03-20] MEDS: MORPHINE SULFATE (*CRX) 4 MG/ML INJ IV PUSH (15:02)
[2024-03-20] MEDS: ONDANSETRON INJ 4 MG/2 ML VIAL IV PUSH (15:02)
--- NOTE | 2024-03-20 15:02 | ED_ITS ---
HPI - Abdominal Pain General Chief Complaint: Abdominal Pain Stated Complaint: ABD PAIN Time Seen by Provider: 03/20/24 14:28 History of Present Illness HPI narrative: This is a 33-year-old female, with history of migraines, who presents emergency department complaining of periumbilical abdominal pain for the past 2 weeks. She describes the pain as sharp, initially intermittent and aggravated by eating, initially rated 4/10, now 7/10 and constant. She states the pain and swelling in the abdomen begins immediately after eating. She is able to pass gas and have normal bowel movements. This is associated with nausea though no vomiting. She has no other complaints at this time. Related Data Allergies Allergy/AdvReac Type Severity Reaction Status Date / Time diazepam AdvReac Intermediate panic Verified 03/20/24 14:39 attacks meperidine AdvReac Intermediate panic Verified 03/20/24 14:39 attacks Review of Systems Review of Systems: CONSTITUTIONAL: Denies fever, chills, or sweats. ENT: Denies rhinorrhea, congestion, sore throat, or otalgia. CARDIOVASCULAR: Denies chest pain, palpitations, or edema. RESPIRATORY: Denies cough or dyspnea. GASTROINTESTINAL: Sharp periumbilical abdominal pain with nausea. Denies v omiting, or diarrhea. GENITOURINARY: LMP 3 weeks ago. Denies dysuria or hematuria. SKIN: Denies rash or itching. MUSCULOSKELETAL: Denies back pain, joint pain, or myalgia. NEUROLOGIC: Denies headache, numbness, dizziness, or weakness. PSYCHIATRIC: Denies anxiety or depression. PMFSH Past Medical History Medical History Anxiety Migraine Social History Social History Smoking status: Never smoker Alcohol intake: never Substance use: never Lack of Transportation: No Lack of Food: Never True Current Housing: I Have Housing Concerned About Future Housing: No Difficulty Paying Gas/Electric Bills: No Difficulty Paying for Meds: No Currently Unemployed: No Education: Decline to Answer Difficulty w/ Childcare or Family Care: No Spiritual care concerns: No Exam Narrative: GENERAL: Well-developed, well-nourished, and in no acute distress. HEAD: Normocephalic, atraumatic. EYES: PERRLA and EOMI. ENT: Nares clear, no rhinorrhea or epistaxis. Mucous membranes moist. Gianni pharynx without tonsillar hypertrophy exudate or other lesions. CHEST: Clear to auscultation. No respiratory distress. No wheezes rales or rhonchi HEART: Regular rate and rhythm. No murmur heard. Normal peripheral pulses. ABDOMEN: Soft, tender to palpation, greatest in the periumbilical region, without rebound or guarding. nondistended, normal active bowel sounds. There is no palpable or reducible mass EXTREMITIES: Normal range of motion. No edema. SKIN: Warm, dry, no rash. NEURO: Alert and oriented x3. No focal deficit. Moving all 4 limbs spontaneously PSYCH: Normal mood and affect. Course Course Emergency Course: 15:55 - CBC demonstrates slightly decreased white blood cell count of 3.4 but is otherwise unremarkable. Chemistries demonstrate slightly decreased bicarb of 21 but is otherwise unremarkable, including a normal lactic acid of 0.8. test negative. CT abdomen pelvis not concerning for acute intra-abdominal process, aside from changes consistent with gastritis. I suspect the patient's symptoms may be related to referred pain from gastritis. Will start the patient on a PPI and discharge with primary care follow-up. On re-evaluation, the patient states her nausea is improved, though recurred after CT. Will give an additional dose of antiemetics and plan for discharge. I discussed the findings and recommendations with the patient. Discussed return and emergency precautions including signs/symptoms of acute abdomen. The patient voiced understanding and agreement with the plan. All questions answered to her satisfaction. Vital Signs Vital signs: Vital Signs Temperature 96.8 F L 03/20/24 14:18 Pulse Rate 85 03/20/24 14:18 Respiratory Rate 20 03/20/24 14:18 Blood Pressure 129/76 03/20/24 14:18 Pulse Oximetry 100 03/20/24 14:18 Oxygen Delivery Room Air 03/20/24 14:18 Temperature 96.8 F L 03/20/24 14:18 Pulse Rate 84 03/20/24 14:46 Respiratory Rate 17 03/20/24 14:46 Blood Pressure 127/80 03/20/24 14:46 Pulse Oximetry 99 03/20/24 14:46 Oxygen Delivery Room Air 03/20/24 14:18 MDM - Abdominal Pain MDM Narrative Medical decision making narrative: Plan: Labs, imaging, pain control, antiemetics, reassess Differential Diagnosis Differential diagnosis: Likely abdominal pain, acute appendicitis, calculus of kidney, constipation, diverticulitis, endometriosis, gastroenteritis, pancreatitis, small bowel obstruction and other (Hernia, , metabolic abnormality, other) Lab Data 03/20/24 15:01 03/20/24 15:01 Labs: Lab Results 03/20/24 Range/Units 15:01 WBC 3.4 L (4.5-10.0) K/mm3 RBC 4.91 (4.2-5.4) M/mm3 Hgb 14.0 (12.0-15.0) g/dL Hct 42.1 (37.0-47.0) % MCV 85.7 (80-100) fl MCH 28.5 (26-34) pg MCHC 33.3 (32-36) g/dl RDW 13.1 (11.5-14.5) % Plt Count 197 (150-375) k/mm3 MPV 10.4 (7.4-10.4) fl Immature Gran % (Auto) 0.6 H (0-0.5) % Neut % (Auto) 47.4 (45.5-73.1) % Lymph % (Auto) 37.4 (18.3-44.2) % [place] % (Auto) 12.2 H (2.6-8.5) % Eos % (Auto) 1.8 (0-4.4) % Baso % (Auto) 0.6 (0.2-1.2) % Lymph # (Auto) 1.26 (0.9-3.2) K/mm3 [place] # (Auto) 0.4 (0.1-0.6) K/mm3 Eos # (Auto) 0.1 (0-0.3) K/mm3 Baso # (Auto) 0.0 (0.0-0.1) K/mm3 Abs Immat Gran (auto) 0.02 (0.00-0.031) K/mm3 Absolute Neuts (auto) 1.6 (1.3-6.7) K/mm3 Absolute Nucleated RBC 0.000 (0.0-0.012) K/mm3 Nucleated RBC % 0.0 (0.0-0.2) % PT 14.8 H (11.1-14.7) Seconds INR 1.1 Sodium 136 L (137-145) mmol/L Potassium 3.9 (3.4-5.0) mmol/L Chloride 108 H (98-107) mmol/L Carbon Dioxide 21 L (22-30) mmol/L Anion Gap 7 (4-12) mmol/L BUN 18 H D (7-17) mg/dL Creatinine 0.70 (0.7-1.0) mg/dL Estim Creat Clear Calc 113 ml/min Estimated GFR > 60 (59 - ) Glucose 108 (65-110) mg/dL Lactic Acid 0.8 (0.7-2.0) mmol/L Calcium 8.7 (8.4-10.2) mg/dL Total Bilirubin 0.7 (0.2-1.3) mg/dL AST 28 (14-36) U/L ALT 33 (6-35) U/L Alkaline Phosphatase 72 (38-126) U/L Total Protein 7.0 (6.3-8.2) g/dL Albumin 4.1 (3.5-5.1) g/dL UCG Bedside Result Negative Reference Range: Negative Imaging Data Radiologist's impression: ITS Impressions Abdomen/Pelvis CT 03/20/24 15:37 IMPRESSION: Mild esophagitis/gastritis. Otherwise, no acute abdominopelvic process detected. Discharge Plan Discharge Clinical Impression: Periumbilical abdominal pain, Nausea, Gastritis Patient Disposition: Home, Self-Care Condition: Stable Instructions: Antibiotic Form, Gastritis (ED) Additional Instructions: You were seen in the emergency department. I suspect your symptoms are related to gastritis. A CT scan of the abdomen demonstrated changes consistent with gastritis but was not concerning for organ injury, hernia or infection. I recommend and oral antacid medication and following up with your primary care doctor. If you develop severe abdominal pain with fevers, persistent vomiting, bleeding, or if you have other emergent concerns for life, limb, or eyesight, return to the emergency department. Patient Language: Turkmen Prescriptions: New omeprazole 40 mg capsule,delayed release(DR/EC) 40 mg PO DAILY Qty: 60 0RF ondansetron 4 mg tablet,disintegrating 4 mg PO Q8H PRN (Reason: nausea and vomiting) Qty: 15 0RF Follow-up/Referrals: Ruben,MAXX Barber [Primary Care Provider] - 2 Weeks Time of Disposition: 15:58
[2024-03-20 15:06] LABS: Basophils Percent Auto 0.6 % (0.2-1.2); Eosinophils Absolute Auto 0.1 K/mm3 (0-0.3); Eosinophils Percent Auto 1.8 % (0-4.4); Hematocrit 42.1 % (37.0-47.0); Immature Granulocyte Absolute 0.02 K/mm3 (0.00-0.031); Immature Granulocyte Percent A 0.6 % (0-0.5); Lymphocytes Absolute Auto 1.26 K/mm3 (0.9-3.2); Lymphocytes Percent Auto 37.4 % (18.3-44.2); Mean Corpuscular HGB Conc 33.3 g/dl (32-36); Mean Corpuscular Hemoglobin 28.5 pg (26-34); Mean Corpuscular Volume 85.7 fl (80-100); Mean Platelet Volume 10.4 fl (7.4-10.4); Monocytes Absolute Auto 0.4 K/mm3 (0.1-0.6); Monocytes Percent Auto 12.2 % (2.6-8.5); Neutrophils Absolute Auto 1.6 K/mm3 (1.3-6.7); Neutrophils Percent Auto 47.4 % (45.5-73.1); Platelet Count Result 197 k/mm3 (150-375); Red Blood Count 4.91 M/mm3 (4.2-5.4); Red Cell Distribution Width 13.1 % (11.5-14.5); White Blood Count 3.4 K/mm3 (4.5-10.0)
[2024-03-20 15:16] LABS: Alanine Aminotransferase 33 U/L (6-35); Albumin Level 4.1 g/dL (3.5-5.1); Alkaline Phosphatase 72 U/L (38-126); Anion Gap 7 mmol/L (4-12); Aspartate Amino Transferase 28 U/L (14-36); Bilirubin,Total 0.7 mg/dL (0.2-1.3); Blood Urea Nitrogen 18 mg/dL (7-17); Calcium 8.7 mg/dL (8.4-10.2); Carbon Dioxide 21 mmol/L (22-30); Chloride 108 mmol/L (98-107); Estimated CRCL calculation 113 ml/min; Estimated Glomerular Filt Rate > 60; Glucose 108 mg/dL (65-110); Lactic Acid Reflex 0.8 mmol/L (0.7-2.0); Potassium 3.9 mmol/L (3.4-5.0); Sodium 136 mmol/L (137-145)
[2024-03-20 15:17] LABS: INR 1.1; Prothrombin Time 14.8 Seconds (11.1-14.7)
[2024-03-20] MEDS: PROCHLORPERAZINE EDISYLATE 10 MG/2 ML VIAL IV PUSH (16:08)
[2024-03-20] MEDS: PANTOPRAZOLE 40 MG TABLET PO (16:08)
== END 2024-03-20 16:44 | disposition home or self-care (01) ==
PROVIDERS: Emergency Provider Preventive Medicine Aerospace Medicine; PCP Physician Assistant
DX: K29.70 Gastritis, unspecified, without bleeding (principal)
CPT/HCPCS: 36415; 74177; 80053; 81025; 83605; 85025; 85610; 96361; 96374; 96375; 99284; A9270; J0780; J2270; J2405; J7030; Q9967

== ENCOUNTER 2025-10-12 10:51 | Outpatient (CLI) | payer OTHER, SELFPAY ==
--- NOTE | ~2025-10-12 | XR_ITS ---
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 Technique: 2 views obtained. Findings: The lungs are clear, no effusion. No pneumothorax. Heart is normal size. Mediastinal and hilar contours are within normal limits. Bony thorax no acute abnormality. Impression: No acute cardiopulmonary abnormality. Reviewed, dictated and finalized at location P. TE SENSING SURVEYOR Impression: No acute cardiopulmonary abnormality.
--- NOTE | ~2025-10-12 | XR_ITS ---
Examination: XR abdomen/kub 1V Clinical History: DIFFICULTY BREATHING,ABDOMINAL FULLNESS Comparison: CT abdomen pelvis 03/20/2024 Technique: 2 views supine AP abdomen Findings: Upper abdomen excluded. Scattered colonic stool. Small bowel loops not well seen. No abnormal abdominal calcifications. No acute bony abnormality. IMPRESSION: 1. No acute abnormality. Reviewed, dictated and finalized at location R. ATHEMATICIAN IMPRESSION: 1. No acute abnormality.
--- OUTSIDE RECORDS SUMMARY | 2025-10-12 12:38 | XMS_ITS | Clinical Summary ---
Author Organization [facility] Address [address] [place] [address] Care Team Providers Care Squilgeer Name Role Phone Gill Miranda Primary Care Provider + Allergies Active Allergy Reactions Criticality Noted Date Comments Meperidine Anxiety Low 09/27/2022 Diazepam Anxiety Low 09/27/2022 Medications amoxicillin-cla vulanate (AUGMENTIN) 875-125 mg per tablet Take 1 tablet by mouth 2 (two) times a day 3 Active benzonatate (TESSALON) 200 mg capsuleIndicati ons:Acute rhinitis Take 1 capsule (200 mg total) by mouth 3 (three) times a day as needed for cough 30 capsule 4 Active Additional Information Patient not taking.Reported on 03/20/2024 methylPREDNISol one (Medrol, Constantino,) 4 mg DosepackIndicat ions:Acute rhinitis,Non-re current acute serous otitis media of both ears follow package directions 1 packet 4 Active Additional Information Patient not taking.Reported on 03/20/2024 venlafaxine 37.5 mg tablet extended release 24hr 24 hr tablet Take 1 tablet (37.5 mg total) by mouth daily Active Active Problems No known active problems Surgical History Surgery Date Site/Laterality Comments FLUORO GUIDED ASPIRATION OR INJECTION LARGE JOINT LEFT 12/23/2022 Left Social History Tobacco Use Types Packs/Day Years Used Date Smoking Tobacco: Never Smokeless Tobacco: Never Tobacco Cessation:Counseling Given: Not Answered Personal Safety Answer Date Recorded Getting School Help Needed Not on file 12/25 Comments Unknown Sex and Gender Information Value Date Recorded Sex Assigned at Not on file Legal Sex Female 4:28 PM CDT Gender Identity Not on file Sexual Orientation Not on file Last Filed Vital Signs Vital Sign Reading Time Taken Comments Blood Pressure 106/64 03/20/2024 10:03 AM CDT Pulse 97 03/20/2024 10:03 AM CDT Temperature 36.5 C (97.7 F) 03/20/2024 10:03 AM CDT Respiratory Rate 18 03/20/2024 10:03 AM CDT Oxygen Saturation 98% 03/20/2024 10:03 AM CDT Inhaled Oxygen Concentration - - Weight 96.2 kg (212 lb) 03/20/2024 10:03 AM CDT Height 165.1 cm (5' 5) 03/20/2024 10:03 AM CDT Body Mass Index 35.28 03/20/2024 10:03 AM CDT Plan of Treatment Health Maintenance Due Date Last Done Comments Cervical Cancer Screening 1992 Depression Screening 1992 Hepatitis C Screening 1992 Regular Well Visit/Exam 18-64 2010 DTaP/Tdap/Td Vaccine (5 - Tdap) 03/22/2011 03/21/2011, 04/11/1997, 06/29/1996, Additional history exists Varicella Vaccines (2 of 2 - 13+ 2-dose series) 04/18/2011 03/21/2011 HPV Vaccines (3 - 3-dose series) 09/20/2011 06/21/2011, 03/21/2011 Covid-19 Vaccine (2024- season) 2025 09/11/2022, 01/22/2022, 08/13/2021, Additional history exists Influenza Vaccine (#1) 2025 Hepatitis B Screening Completed 03/21/2011, 996 Pneumococcal vaccine <65 Aged Out No longer eligible based on patient's age to complete this topic Insurance [facility] Care Teams Squilgeer Relationship Specialty Start Date End Date Gill Miranda PA PCP - General Physician Electro Mechanical Assembler 12/25/23
== END 2025-10-12 10:52 | disposition home or self-care (01) ==
DX: R06.89 Other abnormalities of breathing (principal); R19.8 Other specified symptoms and signs involving the digestive system and abdomen
CPT/HCPCS: 71046; 74018